=== PATIENT | male | born 1945 | race Caucasian/White ===

== ENCOUNTER 2019-11-28 01:55 | Inpatient (IN) ==
[2019-11-28] MEDS ORDERED: CARDIZEM IV ONE (02:27)
--- NOTE | 2019-11-28 02:37 | PROVIDER DOCUMENTATION ---
HPI-General Adult - General Chief Complaint: Shortness of Breath Stated Complaint: sob Time Seen by Provider: 11/28/19 02:16 Source: patient Allergies/Adverse Reactions: Patient Allergies Allergy/AdvReac Type Severity Reaction Status Date / Time No Known Allergies Allergy Verified 11/28/19 03:14 Home Medications: Home Medication List Medication Instructions Recorded Confirmed Last Taken Type Diltiazem HCl [Cartia Xt] 1 tab PO QHS 07/28/19 11/28/19 10/25/19 21:00 History Exenatide Microspheres [Bydureon 2 mg SQ Q7D 07/28/19 11/28/19 10/23/19 09:00 History Bcise] Insulin Glargine,Hum.rec.anlog 20 unit SQ QHS 07/28/19 11/28/19 Unknown History [Lantus Solostar] Amiodarone HCl 300 mg PO QAM 10/26/19 11/28/19 10/25/19 12:00 History Cholecalciferol (Vit D3) [Vitamin 1 cap PO DAILY 10/26/19 11/28/19 10/25/19 12:00 History D] Dabigatran Etexilate Mesylate 1 cap PO BID 10/26/19 11/28/19 10/25/19 21:00 History [Pradaxa] Gabapentin 2 cap PO BID 10/26/19 11/28/19 10/25/19 21:00 History Insulin Aspart [Novolog Flexpen] See Protocol SQ AC + HS 10/26/19 11/28/19 Unknown History Magnesium Oxide 400 tab PO DAILY 10/26/19 11/28/19 10/25/19 12:00 History Metformin HCl 1,000 tab PO BID 10/26/19 11/28/19 10/25/19 21:00 History Metoprolol Tartrate 100 tab PO BID 10/26/19 11/28/19 10/25/19 21:00 History Nitroglycerin [Nitrostat] 0.4 mg SUBLINGUAL DIRECTED PRN 10/26/19 11/28/19 Unknown History Potassium Chloride [Klor-Con M20] 1 tab PO DAILY 10/26/19 11/28/19 10/25/19 12:00 History Pravastatin Sodium 1 tab PO QPM 10/26/19 11/28/19 10/25/19 21:00 History Promethazine [Phenergan] 12.5 mg PO Q6HR PRN 10/26/19 11/28/19 10/09/19 21:00 History Ropinirole HCl 2 mg PO TID@0900,1500,2100 10/26/19 11/28/19 10/25/19 21:00 History Sertraline [Zoloft] 1 tab PO DAILY 10/26/19 11/28/19 10/25/19 21:00 History Furosemide [Lasix] 40 tab PO DAILY #60 10/28/19 11/28/19 Unknown Rx - History of Present Illness -Gen Adult Nature of Presenting Problems: 74y/o M presents to the ED complaining of dyspnea. States he did not take his medications today as he was away from home and this evening had a sudden onset of shortness of breath. States since the dyspena began it has persisted. No fever, no cough, no recent illness. No chest pain no palpitations. Review of Systems - Adult - REVIEW OF SYSTEMS - ADULT Constitutional: reports: no symptoms reported Eyes: reports: no symptoms reported Ears, Nose, Mouth & Throat: reports: no symptoms reported Cardiovascular: reports: no symptoms reported Respiratory: reports: shortness of breath Gastrointestinal: reports: no symptoms reported Genitourinary: reports: no symptoms reported Musculoskeletal: reports: no symptoms reported Integumentary: reports: no symptoms reported Neurological: reports: no symptoms reported Psychiatric: reports: no symptoms reported Endocrine: reports: no symptoms reported Hematologic/Lymphatic: reports: no symptoms reported Allergic/Immunologic: reports: no symptoms reported All Other Systems: Reviewed and Negative Past History - Adult - PAST MEDICAL HISTORY-ADULT Review of Records: reports: Old Records Reviewed, Nursing Assessment Review, Medications Reviewed, Social history reviewed & non-contributory. Major Childhood Illnesses: reports: denies history Cardiovascular: reports: A-Fib, CAD, CHF, HTN, SC, pacemaker Respiratory: reports: sleep apnea Gastrointestinal: reports: denies history Obstetrical/Gynecological: reports: denies history Genitourinary: reports: denies history Musculoskeletal: reports: denies history Neurological: reports: denies history Endocrine/Immune: reports: Diabetes Other Conditions: reports: denies history - PRIOR SURGERIES/PROCEDURES Surgical/Procedure History: reports: pacemaker - IMMUNIZATION STATUS Childhood Immunizations: See Nurse Assessment Flu Vaccine: See Nurse Assessment - FAMILY HISTORY Family History: reviewed, not pertinent Physical Exam-General - PHYSICAL EXAM-ADULT Initial Vital Signs Reviewed: Yes - CONSTITUTIONAL General Appearance: appears well, alert, mild distress - EYES Eyes: PERRL/EOMI - HEAD, EARS, NOSE, MOUTH & THROAT HENMT: normocephalic/atraumatic, moist mucous membranes, normal ENT inspection - NECK Neck: non-tender, full range of motion, supple - RESPIRATORY Respiratory: chest non-tender, lungs clear, normal breath sounds - CARDIOVASCULAR Cardiovascular: normal peripheral pulses, regular rate, rhythm, no edema - GASTROINTESTINAL (ABDOMEN) Abdominal Exam: non tender, soft - MUSCULOSKELETAL Back Exam: normal inspection, no CVA tenderness, no vertebral tenderness Extremity: normal range of motion, non-tender, no pedal edema - SKIN Integumentary: normal color, normal turgor, warm/dry - NEUROLOGIC Neurologic: grossly normal, no motor/sensory deficits - PSYCHIATRIC Psych/Mental Status: normal mood/affect, normal thought content, normal thought process, oriented x 3 Progress - PLAN OF CARE/RESULTS Progress/Plan/Lab Results: Vital Signs - 8 hr 11/28/19 02:14 Temperature 98.6 F Pulse Rate 112 H Respiratory Rate 29 H Blood Pressure 168/104 O2 Sat by Pulse Oximetry 94 L Orders Category Date Time Status Cardiac Monitoring NOW Care 11/28/19 02:22 Active IV Insertion NOW Care 11/28/19 02:22 Active NEWS Score >or=5:Order NEWS Bundle S.O. NOW Care 11/28/19 02:20 Active Nursing- Obtain EKG ONCE Care 11/28/19 01:58 Active CHEST-1 VIEW [RAD] Stat Exams 11/28/19 02:22 Ordered BLOOD CULTURE [BLDCUL] Stat Lab 11/28/19 02:22 Uncollected BNP [PRO B-NATRIURETIC PEPTIDE] Stat Lab 11/28/19 02:26 Uncollected CBC WITH DIFF [HEME] Stat Lab 11/28/19 02:22 Uncollected TROPONIN T HIGH SENSITIVITY Stat Lab 11/28/19 02:22 Uncollected Diltiazem [Cardizem] Med 11/28/19 02:27 Discontinued 10 mg IV NOW ONE O2 Per Protocol Stat Oth 11/28/19 02:22 Active EKG [EKG] Stat Ther 11/28/19 01:58 Ordered dyspnea with afib with rvr on EKG. Will treat and will further evaluate for causes including but not limited to acs, arrythmia, pna, pe, ptx Result Diagrams: 11/28/19 02:40 11/28/19 02:40 - REASSESSMENT Reassessment #1 Status: improving (feeling better, dyspnea likely due to CHF. Will treat and observe) Reassessment #2 Status: improving (feeling much better dyspnea much improved but pt rapidly desaturates off oxygen and with any attempt at ambulation. Will admit for further evaluation and treatment. Discussed case with hospitalist who will see and admit pt) - EKG 1 Time of EKG reading by physician:: 02:12 EKG Read and Signed by:: Salome Chisholm EKG Interpretation (*Must complete 3 of following elements*): Abnormal (atrail fibrillation, rate 118, no acute st changes, normal axis) - XRAY 1 XRAY Study: Chest Impression: Abnormal (marked pulmonary edema) Departure - Departure Date of Disposition Decision: 11/28/19 Time of Disposition Decision: 06:58 DIAGNOSIS: CHF exacerbation Qualifiers: Heart failure type: unspecified Qualified Code(s): I50.9 - Heart failure, unspe cified Pulmonary edema Qualifiers: Chronicity: acute Qualified Code(s): J81.0 - Acute pulmonary edema Disposition: ADMITTED INPATIENT 09 Certified Medical Emergency: Emergent Condition: Fair Referrals and Follow-Ups: None,PCP [Primary Care Provider] - - Critical Care Note This patient required my direct & personal management of CC.: No Attestation - Physician/ RUBEN Attestation Patient care was provided by Advanced Practice Provider:: No The physician spent face to face time with patient:: Yes Advanced Practice Provider documentation review:: Supervising physician onsite and consulted in the evaluation and care of this patient. The physician did have a face to face encounter with the patient.
[2019-11-28 03:01] LABS: BASO# 0.04 X1000 (0.0-0.2); BASO% 0.4 % (0.0-0.8); EOS# 0.08 X1000 (0.0-0.7); EOS% 0.8 % (0.0-10.0); HEMATOCRIT 42.2 % (42.0-52.0); HEMOGLOBIN 12.4 g/dL (14.0-18.0); IMM GRAN# 0.03 X1000 (0.0-0.04); IMM GRAN% 0.3 % (0.0-0.5); LYMPH% 6.9 % (20.5-51.1); MCH 26.6 PG (27-31); MCHC 29.4 g/dL (33-37); MCV 90.6 FL (81-99); MONO# 0.87 X1000 (0.11-0.59); MONO% 8.5 % (1.7-9.3); NEUT# 8.46 X1000 (1.4-6.5); NEUT% 83.1 % (42.2-75.2); PLT 263 X1000 (130-400); RBC 4.66 XMIL (4.7-6.1); WBC 10.18 X1000 (4.8-10.8)
[2019-11-28] MEDS ORDERED: ASPIRIN PO ONE ×2 (03:47→04:09)
[2019-11-28] MEDS ORDERED: NITROGLYCERIN TOP ONE (03:47)
[2019-11-28] MEDS ORDERED: LASIX IV ONE (03:47)
[2019-11-28 04:22] LABS: AGAP 14; BUN 16 mg/dL (8-22); CALCIUM 8.9 mg/dL (8.8-10.2); CHLORIDE 99 mmol/L (98-107); COSMO 286; ESTIMATED GFR > 60; GLUCOSE 169 mg/dL (70-104); POTASSIUM 3.8 mmol/L (3.5-5.1); SODIUM 141 mmol/L (136-145); TCO2 28 mmol/L (25-35)
--- NOTE | 2019-11-28 07:28 | Diag Imaging Result Doc PS360 ---
EXAM: CHEST-1 VIEW HISTORY: SOB TECHNIQUE: Single view COMPARISON: 10/26/2019 FINDINGS: Poor inspiratory effort. The heart is mildly prominent. There is diffuse bilateral infiltrates. Tiny left pleural effusion. There is a right-sided pacemaker. IMPRESSION: Mild cardiac prominence with pulmonary edema and/or pneumonia Electronically signed by Edward Leavitt 11/28/2019 7:25 AM
--- NOTE | 2019-11-28 07:55 | EKG Report ---
Test Performed on : 11/28/2019 02:11:16 AM Test Reason : shortness of breath Blood Pressure : / mmHG Vent. Rate : 118 BPM Atrial Rate : 117 BPM P-R Int : 000 ms QRS Dur : 100 ms QT Int : 348 ms P-R-T Axes : 000 097 -51 degrees QTc Int : 487 ms Atrial fibrillation. with rapid ventricular response. Rightward axis ST & T wave abnormality, consider inferior ischemia Abnormal ECG When compared with ECG of 26-OCT-2019 14:43, (Unconfirmed) T wave inversion now evident in Anterior leads Unconfirmed Result
[2019-11-28] MEDS ORDERED: PHENERGAN PO PRN (08:22)
[2019-11-28] MEDS ORDERED: NITROGLYCERIN SL PRN (08:22)
[2019-11-28] MEDS ORDERED: TYLENOL PO PRN (08:55)
[2019-11-28] MEDS ORDERED: METOPROLOL TARTRATE PO SCH (09:00)
--- NOTE | 2019-11-28 10:10 | HISTORY AND PHYSICAL ---
PRIMARY CARE PROVIDERS: Karon Cottrell, family nurse practitioner in [place], [place]. EKG TECH: Dr. Card. CHIEF COMPLAINT: Shortness of breath. HISTORY OF PRESENT ILLNESS: Mr. James Hills is a 74-year-old male with a medical history of chronic atrial fibrillation, congestive heart failure, coronary artery disease with a history of CA and stent back in 2004, and also history of hypertension. He has a permanent pacemaker in the right side of his chest. He is here with complaints of progressively worsening shortness of breath for at least 3 days. He went to visit his family yesterday and did not take any of his medications at all and then through the night had progressively worsening shortness of breath, felt like he could not catch his breath. For years, he has not been able to sleep flat. He has pitting edema of the lower extremities, but he claims that this is not any worse than it normally is. He received IV Lasix while he was in the emergency department, aspirin, IV dose of diltiazem because his heart rate was over 100, but continued to require oxygen. He does not wear oxygen at home. He did have a recent admission back in October where he was treated for pneumonia and for congestive heart failure at that time. He did not have any fevers this time. He has not been coughing up any colors. He has not even had a cough. He has not been around any sick contacts. PAST MEDICAL HISTORY: 1. Coronary artery disease with CA and cardiac stent on the left back in 2004. 2. Diabetes mellitus type 2. 3. Hyperlipidemia. 4. Chronic atrial fibrillation. 5. Hypertension. 6. Congestive heart failure. 7. Depression. PAST SURGICAL HISTORY: 1. Right chest permanent pacemaker. 2. Cardiac stent on the left in 2004. 3. Bilateral rotator cuff repair. 4. Three back surgeries. 5. Right knee replacement. 6. Left carpal tunnel. 7. Left elbow surgery. 8. Bilateral cataracts. SOCIAL HISTORY: He quit smoking over 50 years ago, only smoked for about 2 years and it was less than a half pack per day. He denies alcohol or any illicit drug use. He lives at home with his significant other. Currently has to use a cane for ambulation. FAMILY HISTORY: Mother had heart disease and diabetes. Father had multiple strokes. ALLERGIES: No known drug allergies. HOME MEDICATIONS: 1. Diltiazem 120 mg p.o. nightly. 2. Lantus 20 units subcutaneous nightly. 3. Phenergan 12.5 mg p.o. q.6 hours p.r.n. 4. Amiodarone 300 mg p.o. daily. 5. Bydureon BCise 2 mg subcutaneous every 7 days. 6. Neurontin 600 mg p.o. twice daily. 7. Potassium chloride 20 mEq p.o. daily. 8. Magnesium oxide 400 mg p.o. daily. 9. Metformin 1000 mg p.o. twice daily. 10. Metoprolol tartrate 100 mg p.o. twice daily. 11. Nitrostat 0.4 mg sublingual p.r.n. 12. NovoLog insulin sliding scale. 13. Pradaxa 150 mg p.o. twice daily. 14. Pravastatin 40 mg p.o. nightly. 15. Ropinirole 2 mg p.o. t.i.d. 16. Vitamin D3, 5000 units p.o. daily. 17. Zoloft 50 mg p.o. daily. 18. Lasix 40 mg p.o. daily. REVIEW OF SYSTEMS: A 14-point review of systems are complete and all were negative for those mentioned in above HPI. PHYSICAL EXAMINATION: VITAL SIGNS: Temperature 98.2 degrees, heart rate 98, respiratory rate 27, blood pressure 126/86, O2 saturation 91% on room air and 99% on 5 L. He is 5 feet 10 inches tall, 214 pounds with a BMI of 30.7. GENERAL: Mr. James Hills is a 74-year-old male. He is in no acute distress. He is able to answer questions appropriately next. HEENT: Atraumatic, normocephalic. Pupils equal, round, reactive to light. Extraocular movements intact. Mucous membranes are moist. NECK: Trachea midline. CARDIOVASCULAR: Irregularly irregular rate and rhythm. No rubs, gallops, murmurs. He has got 2+ lower extremity pitting edema, +2 dorsalis and radial pulses. Unable to assess for JVD due to body habitus. Negative for carotid bruits. PULMONARY: No wheezing noted, but there were some mild crackles in the mid to lower bases anteriorly and posteriorly. He was tolerating 5 L nasal cannula. ABDOMEN: Soft, round. Positive bowel sounds x4. EXTREMITIES: Moves all extremities equally with decreased range of motion. NEUROLOGIC: Alert and oriented x3. Follows commands. Sensory is intact. SKIN: Warm, dry, intact. Bilateral calves were a little pinkish or light red hue. He states that is chronic. LABORATORY DATA: White blood cells 10,000, hemoglobin 12, hematocrit 42, platelet count 263,000. Sodium 141, potassium 3.8, BUN 16, creatinine 1.0, glucose 169, calcium 8.9. Troponin 24. ProBNP is 2236. IMAGING: Chest x-ray: Pulmonary edema and/or pneumonia. EKG: Atrial fibrillation with RVR. Rate was 118, QTc was 487. ASSESSMENT AND PLAN: 1. Acute on chronic systolic congestive heart failure. We do not have an echocardiogram here. We are going to get one to update and evaluate the heart function at this time. He has been given 40 of Lasix IV in the ER. We will continue that twice a day. We will also continue his metoprolol. He normally takes 100 twice a day. Will drop it down to 50 twice a day and increase it back up prior to discharge. We will continue his diltiazem for rate control and amiodarone for rate control. He was in atrial fibrillation with rapid ventricular response when he presented. Potassium will continue. Magnesium will continue. 2. Acute hypoxemic respiratory failure. Wean oxygen for sats >90%. He does not use oxygen at home. Nebulizers every 6 hours ordered. 3. Atrial fibrillation with rapid ventricular response with history of chronic atrial fibrillation. Currently rate is more controlled. He did get a dose of IV diltiazem. We will continue his p.o. dosing of diltiazem, amiodarone and his beta patti. He is on Pradaxa. We will continue that. 4. History of coronary artery disease, myocardial infarction and cardiac stent. He has currently got a pacemaker as well. No complaints of chest pain. Beta patti, statin continued. 5. Hyperlipidemia. Continue statin. 6. Diabetes mellitus type 2. We will do pattern blood glucoses and sliding scale insulin. We will also continue his 20 units of Lantus at night and his metformin. 7. Depression. Continue Zoloft. 8. Deep venous thrombosis prophylaxis. Sequential compression devices. Dictated by FRANKY Duenas for Clarke Tapia MD cc: FRANKY Duenas MD [facility]
[2019-11-28] MEDS: ATROVENT NEB INH SCH ×3 (11:24→22:55)
[2019-11-28] MEDS: XOPENEX NEB INH SCH ×3 (11:25→22:55)
[2019-11-28] MEDS: PRILOSEC PO SCH (12:31)
[2019-11-28] MEDS: NEURONTIN PO SCH ×2 (12:32→23:28)
[2019-11-28] MEDS: MAG-OX PO SCH (12:32)
[2019-11-28] MEDS: GLUCOPHAGE PO SCH ×2 (12:32→17:27)
[2019-11-28] MEDS: ZOLOFT PO SCH (12:32)
[2019-11-28] MEDS: KLOR-CON PO SCH (12:32)
[2019-11-28] MEDS: VITAMIN D PO SCH (12:33)
[2019-11-28] MEDS: LASIX IV SCH ×2 (12:33→23:28)
[2019-11-28] MEDS: HUMULIN R SUBQ SCH ×3 (12:35→22:04)
[2019-11-28] MEDS: CORDARONE PO SCH (12:35)
--- NOTE | 2019-11-28 17:13 | HISTORY AND PHYSICAL ---
Patient has no major complaints. He came in today with a 3-day history of dyspnea on exertion, orthopnea, which that has been longstanding, increasing lower extremity edema. He reports history of CAD, not clear if he has heart failure associated. He is not here very often. He was admitted over a year ago for chest pain, shortness of breath at that time and was felt to have heart failure then. It is not completely clear what his diagnosis was. He had pulmonary edema at that time, but likely he has heart failure. No echocardiogram has been obtained here. He sees [facility] physician in [place], which it sounds like it is Dr. Juárez, but we will continue to follow. We will continue diuretics. We will continue control of atrial fibrillation. Pending his echocardiogram, we may have to adjust his medications accordingly. He is already on Pradaxa and get Cardiology opinion. This is a [id number] encounter note with Nakita Koo. cc: Clarke Tapia MD
[2019-11-28] MEDS: REQUIP PO SCH ×2 (17:27→23:28)
[2019-11-28] MEDS: LOPRESSOR PO SCH ×2 (18:35→23:28)
[2019-11-28] MEDS: LANTUS INSULIN SUBQ SCH (22:07)
[2019-11-28] MEDS: PRADAXA PO SCH (23:28)
[2019-11-28] MEDS: CARDIZEM CD PO SCH (23:28)
[2019-11-28] MEDS: PRAVACHOL PO SCH (23:28)
[2019-11-29] MEDS: XOPENEX NEB INH SCH ×4 (03:40→21:00)
[2019-11-29] MEDS: ATROVENT NEB INH SCH ×4 (03:40→21:00)
--- NOTE | 2019-11-29 05:51 | ECHO REPORT ---
ORDER DATE: 11/28/2019 MEASUREMENTS: 1. Septal thickness 1.3. 2. Left ventricular internal diameter in diastole 3.6. 3. Posterior wall thickness 1.1. 4. Left ventricular internal diameter in systole 2.7. 5. Aortic root 3.5. 6. Left atrium 3.5. SUMMARY: 1. Technically difficult study due to limited acoustic window quality. 2. Aortic valve is trileaflet and opens normally on 2-dimensional images. Peak gradient across aortic valve is 12 mmHg. Mitral annular calcification is demonstrated. There is very mild mitral regurgitation. Tricuspid and pulmonic valves are without evidence of structural abnormality with mild tricuspid regurgitation. The estimated systolic PA pressure by Doppler is 75 to 80 mmHg suggesting moderate to severe pulmonary hypertension. The aortic root is normal in size. 3. Normal left ventricular chamber size with mild concentric left ventricular hypertrophy is demonstrated. Estimated left ejection fraction appears to be at least 60%. No regional wall motion abnormality can be appreciated. Left atrium is normal in size. Mild biatrial enlargement is demonstrated. Right ventricle appears mildly enlarged. 4. Pacemaker lead evident in right ventricle. 5. No pericardial effusion. 6. Appearance of inferior vena cava suggests normal central venous pressure. 7. Atrial fibrillation during study. Mild biatrial enlargement is demonstrated. Right ventricle appears mildly enlarged. Pacemaker lead is evident in the right ventricle. 8. No pericardial effusion. 9. Appearance of inferior vena cava suggests elevated central venous pressure. 10. Atrial fibrillation during study. CONCLUSIONS: 1. Technically difficult study. 2. Very mild mitral regurgitation. 3. Mild tricuspid regurgitation with moderate to severe pulmonary hypertension by Doppler. 4. Mild concentric left ventricular hypertrophy with estimated left ventricular ejection fraction at least 60%. 5. Mild biatrial enlargement. 6. Mild right ventricular enlargement. 7. Atrial fibrillation during study. cc: MD Nakita Portilol CRNP
[2019-11-29] MEDS: HUMULIN R SUBQ SCH ×3 (06:24→16:00)
[2019-11-29 06:42] LABS: BASO# 0.04 X1000 (0.0-0.2); BASO% 0.6 % (0.0-0.8); EOS# 0.19 X1000 (0.0-0.7); EOS% 2.7 % (0.0-10.0); HEMATOCRIT 39.9 % (42.0-52.0); HEMOGLOBIN 11.5 g/dL (14.0-18.0); LYMPH# 0.81 X1000 (1.2-3.4); LYMPH% 11.5 % (20.5-51.1); MCH 26.8 PG (27-31); MCHC 28.8 g/dL (33-37); MONO# 0.84 X1000 (0.11-0.59); MONO% 11.9 % (1.7-9.3); MPV 9.2 FL (7.4-10.4); NEUT# 5.18 X1000 (1.4-6.5); NEUT% 73.3 % (42.2-75.2); PLT 259 X1000 (130-400); RBC 4.29 XMIL (4.7-6.1); RDW 19.5 % (11.5-14.5); WBC 7.06 X1000 (4.8-10.8)
[2019-11-29 06:49] LABS: INR 1.17; PROTIME 15.1 Seconds (11.0-16.0); PTT 42.7 Seconds (22.3-41.8)
[2019-11-29 06:55] LABS: HEMOGLOBIN A1C 7.4 % (4.8-6.0)
[2019-11-29 07:02] LABS: ALB/GLOB RATIO 1.3; ALBUMIN 3.9 g/dL (3.5-5.0); CALCIUM 8.7 mg/dL (8.8-10.2); CREATININE 1.2 mg/dL (0.7-1.2); MAGNESIUM 1.8 mg/dL (1.5-2.7); POTASSIUM 3.7 mmol/L (3.5-5.1); TOTAL BILIRUBIN 0.91 mg/dL (0.20-1.00); TOTAL PROTEIN 6.8 g/dL (6.3-8.3)
[2019-11-29 07:46] LABS: BANDS 2 % (0-1); HYPOCHROM 1+; LYMPHS 26 % (21-51); MONO 10 % (1-9); SEGS 62 % (42-75)
--- NOTE | 2019-11-29 07:48 | EKG Report ---
Test Performed on : 11/29/2019 07:09:31 AM Test Reason : sob; chf; afib Blood Pressure : / mmHG Vent. Rate : 076 BPM Atrial Rate : 076 BPM P-R Int : 000 ms QRS Dur : 102 ms QT Int : 428 ms P-R-T Axes : 000 083 -20 degrees QTc Int : 481 ms Undetermined rhythm Nonspecific ST abnormality Abnormal QRS-T angle, consider primary T wave abnormality Prolonged QT Abnormal ECG When compared with ECG of 29-NOV-2019 07:08, (Unconfirmed) Current undetermined rhythm precludes rhythm comparison, needs review Confirmed by Liz BLANKENSHIP, Manoj Almeida ([id number]) on 11/29/2019 9:37:41 AM
--- NOTE | 2019-11-29 07:52 | EKG Report ---
Test Performed on : 11/29/2019 07:10:43 AM Test Reason : sob; chf; afib Blood Pressure : / mmHG Vent. Rate : 085 BPM Atrial Rate : 086 BPM P-R Int : 000 ms QRS Dur : 112 ms QT Int : 442 ms P-R-T Axes : 000 083 -33 degrees QTc Int : 525 ms Atrial fibrillation. Possible Lateral infarct , age undetermined Abnormal ECG When compared with ECG of 29-NOV-2019 07:09, (Unconfirmed) Previous ECG has undetermined rhythm, needs review Confirmed by Liz BLANKENSHIP, Manoj Almeida ([id number]) on 11/29/2019 9:37:43 AM
[2019-11-29] MEDS: PRADAXA PO SCH ×2 (09:16→20:51)
[2019-11-29] MEDS: CORDARONE PO SCH (09:16)
[2019-11-29] MEDS: NEURONTIN PO SCH ×2 (09:16→20:51)
[2019-11-29] MEDS: KLOR-CON PO SCH (09:17)
[2019-11-29] MEDS: GLUCOPHAGE PO SCH ×2 (09:17→17:00)
[2019-11-29] MEDS: VITAMIN D PO SCH (09:17)
[2019-11-29] MEDS: PRILOSEC PO SCH (09:17)
[2019-11-29] MEDS: LASIX IV SCH ×2 (09:18→20:51)
[2019-11-29] MEDS: MAG-OX PO SCH (09:18)
[2019-11-29] MEDS: LOPRESSOR PO SCH ×2 (09:18→20:51)
[2019-11-29] MEDS: ZOLOFT PO SCH (09:18)
[2019-11-29] MEDS: REQUIP PO SCH ×3 (09:18→20:51)
--- NOTE | 2019-11-29 09:46 | Diag Imaging Result Doc PS360 ---
EXAM: CHEST-2 VIEWS - 11/29/2019 HISTORY: sob TECHNIQUE: Chest two views COMPARISON: 11/28/2019 portable one view chest FINDINGS: Bilateral infiltrates appear to have decreased mildly. There are tiny bilateral pleural effusions. There is no evidence of pneumothorax. There is stable borderline cardiomegaly. There is transvenous cardiac pacemaker again seen. IMPRESSION: Mild decrease in bilateral infiltrates compared to prior. Electronically signed by Devonte Smith 11/29/2019 9:44 AM
--- NOTE | 2019-11-29 16:50 | PROGRESS NOTE ---
DATE: 11/29/2019 SUBJECTIVE: Patient has no major complaints. OBJECTIVE: Blood pressure is 111/64, heart rate of 94, respiratory rate of 20, temperature 98.3 degrees, 93% on 2 L.Cardiovascular: Regular rate and rhythm. Pulmonary: Bilateral breath sounds clear to auscultation. GI: Was soft, nontender, nondistended. Bowel sounds were positive. LABS: White count 7, hemoglobin and hematocrit 11, 39, platelets 259,000. Creatinine 1.2. A1c 7.4. PROBLEM LIST: 1. Acute congestive heart failure exacerbation presumably diastolic based on his echocardiogram, ejection fraction is 60%. We will continue diuresis. He seems like he is breathing a little bit better and to me his x-ray looks better. 2. Atrial fibrillation, he is rate controlled, although still somewhat fast. He is on amiodarone and Cardizem. He is on Pradaxa I think for anticoagulation. 3. Anemia which may be of chronic disease. We will continue to follow. 4. Type 2 diabetes is relatively well controlled looking at the labs. DISPOSITION: I anticipate discharge in another 24 hours. cc: Clarke Tapia MD
[2019-11-29] MEDS: PRAVACHOL PO SCH (20:51)
[2019-11-29] MEDS: CARDIZEM CD PO SCH (20:51)
[2019-11-30] MEDS: ATROVENT NEB INH SCH ×4 (04:00→22:24)
[2019-11-30] MEDS: XOPENEX NEB INH SCH ×4 (04:00→22:24)
[2019-11-30] MEDS: HUMULIN R SUBQ SCH ×5 (06:39→16:15)
[2019-11-30] MEDS: LANTUS INSULIN SUBQ SCH (06:40)
[2019-11-30 06:51] LABS: BASO# 0.03 X1000 (0.0-0.2); BASO% 0.4 % (0.0-0.8); EOS# 0.22 X1000 (0.0-0.7); EOS% 2.8 % (0.0-10.0); HEMATOCRIT 42.8 % (42.0-52.0); HEMOGLOBIN 12.4 g/dL (14.0-18.0); IMM GRAN# 0.02 X1000 (0.0-0.04); IMM GRAN% 0.3 % (0.0-0.5); LYMPH# 0.75 X1000 (1.2-3.4); LYMPH% 9.6 % (20.5-51.1); MCH 26.8 PG (27-31); MCV 92.4 FL (81-99); MONO# 0.73 X1000 (0.11-0.59); MONO% 9.4 % (1.7-9.3); MPV 9.5 FL (7.4-10.4); NEUT# 6.05 X1000 (1.4-6.5); NEUT% 77.5 % (42.2-75.2); PLT 301 X1000 (130-400); RBC 4.63 XMIL (4.7-6.1); RDW 19.1 % (11.5-14.5)
[2019-11-30 07:06] LABS: IRON SATURATION 21 %; TIBC 404 ug/dL; TOTAL IRON 86 ug/dL (53-167); UNBOUND IRON 318 ug/dL (112-346)
[2019-11-30 07:18] LABS: ALB/GLOB RATIO 0.9; ALBUMIN 3.8 g/dL (3.5-5.0); CREATININE 1.2 mg/dL (0.7-1.2); POTASSIUM 4.2 mmol/L (3.5-5.1); TOTAL BILIRUBIN 0.84 mg/dL (0.20-1.00)
[2019-11-30 07:37] LABS: FERRITIN 111 ng/mL (30-400)
[2019-11-30] MEDS: CORDARONE PO SCH (09:43)
[2019-11-30] MEDS: REQUIP PO SCH ×3 (09:43→21:27)
[2019-11-30] MEDS: LOPRESSOR PO SCH ×2 (09:43→21:27)
[2019-11-30] MEDS: NEURONTIN PO SCH ×2 (09:43→21:26)
[2019-11-30] MEDS: PRADAXA PO SCH ×2 (09:43→21:27)
[2019-11-30] MEDS: ZOLOFT PO SCH (09:44)
[2019-11-30] MEDS: PRILOSEC PO SCH (09:44)
[2019-11-30] MEDS: MAG-OX PO SCH (09:44)
[2019-11-30] MEDS: LASIX IV SCH ×2 (09:44→21:27)
[2019-11-30] MEDS: VITAMIN D PO SCH (09:44)
[2019-11-30] MEDS: GLUCOPHAGE PO SCH ×2 (09:44→16:15)
[2019-11-30] MEDS: KLOR-CON PO SCH (09:44)
--- NOTE | 2019-11-30 18:46 | PROGRESS NOTE ---
DATE: 11/30/2019 SUBJECTIVE: The patient has no major complaints. He wants to go home, but he is still having an O2 requirement. OBJECTIVE: Blood pressure is 109/64, heart rate of 83, respiratory rate 20, and temperature 98.3 degrees.Cardiovascular: Regular rate and rhythm. Pulmonary: Bilateral breath sounds clear to auscultation. GI: Soft. Nontender, nondistended. Bowel sounds are positive. LABORATORY DATA: White count is 7.8, hemoglobin and hematocrit 12 and 42, and platelets of 301,000. Creatinine of 1.2. Folate is 6.3. PROBLEM LIST: 1. Acute congestive heart failure exacerbation with preserved ejection fraction so diastolic. We will continue diuresing. He seems to be doing okay. 2. Atrial fibrillation. Continue amiodarone. Continue Cardizem. Continue Pradaxa. Heart rate is controlled. 3. Hypoxia which is likely related to his heart failure. His chest x-ray to me looked overall improved. DISPOSITION: 1. We plan to discharge him once we have oxygen set up, which will most likely at this point occur tomorrow, but I think can continue his Lasix in any case. 2. Diabetes. Stable blood sugars. We will continue to follow closely. cc: Clarke Tapia MD
[2019-11-30] MEDS: PRAVACHOL PO SCH (21:26)
[2019-11-30] MEDS: CARDIZEM CD PO SCH (21:26)
[2019-12-01] MEDS: ATROVENT NEB INH SCH (03:41)
[2019-12-01] MEDS: XOPENEX NEB INH SCH (03:41)
[2019-12-01] MEDS: LANTUS INSULIN SUBQ SCH (06:27)
[2019-12-01] MEDS: HUMULIN R SUBQ SCH ×2 (06:27→06:59)
[2019-12-01 07:11] LABS: BASO# 0.02 X1000 (0.0-0.2); BASO% 0.3 % (0.0-0.8); EOS# 0.23 X1000 (0.0-0.7); EOS% 3.3 % (0.0-10.0); HEMATOCRIT 42.2 % (42.0-52.0); HEMOGLOBIN 12.4 g/dL (14.0-18.0); IMM GRAN# 0.02 X1000 (0.0-0.04); IMM GRAN% 0.3 % (0.0-0.5); LYMPH% 9.9 % (20.5-51.1); MCHC 29.4 g/dL (33-37); MCV 91.9 FL (81-99); MONO% 9.9 % (1.7-9.3); MPV 9.3 FL (7.4-10.4); NEUT# 5.39 X1000 (1.4-6.5); NEUT% 76.3 % (42.2-75.2); PLT 298 X1000 (130-400); RBC 4.59 XMIL (4.7-6.1); RDW 18.6 % (11.5-14.5); WBC 7.06 X1000 (4.8-10.8)
[2019-12-01 07:37] LABS: AGAP 15; ALB/GLOB RATIO 0.9; ALBUMIN 3.9 g/dL (3.5-5.0); ALKALINE PHOSPHATASE 94 U/L (32-122); BUN 26 mg/dL (8-22); CALCIUM 9.2 mg/dL (8.8-10.2); CHLORIDE 93 mmol/L (98-107); COSMO 290; CREATININE 1.1 mg/dL (0.7-1.2); ESTIMATED GFR > 60; GLUCOSE 245 mg/dL (70-104); GOT 16 U/L (10-34); GPT 11 U/L (10-44); MAGNESIUM 1.9 mg/dL (1.5-2.7); POTASSIUM 3.7 mmol/L (3.5-5.1); SODIUM 139 mmol/L (136-145); TCO2 31 mmol/L (25-35); TOTAL BILIRUBIN 0.58 mg/dL (0.20-1.00); TOTAL PROTEIN 8.2 g/dL (6.3-8.3)
[2019-12-01 08:08] VITALS: BP 114/65
--- NOTE | 2019-12-01 08:46 | Diag Imaging Result Doc PS360 ---
EXAM: CHEST-2 VIEWS 12/01/2019 HISTORY: hypoxia TECHNIQUE: PA and lateral chest COMMENT: There is blunting of the left costophrenic angle and opacity over the left hemidiaphragm. This was also present on 11/29/2019. Overall the appearance of the chest has not changed significantly. IMPRESSION: Left pleural effusion and basilar atelectasis versus pneumonia. Electronically signed by Soto Thomas 12/01/2019 8:44 AM
[2019-12-01] MEDS: CORDARONE PO SCH (09:19)
[2019-12-01] MEDS: REQUIP PO SCH (09:20)
[2019-12-01] MEDS: LOPRESSOR PO SCH (09:20)
[2019-12-01] MEDS: GLUCOPHAGE PO SCH (09:20)
[2019-12-01] MEDS: PRADAXA PO SCH (09:20)
[2019-12-01] MEDS: NEURONTIN PO SCH (09:20)
[2019-12-01] MEDS: ZOLOFT PO SCH (09:20)
[2019-12-01] MEDS: VITAMIN D PO SCH (09:20)
[2019-12-01] MEDS: KLOR-CON PO SCH (09:20)
[2019-12-01] MEDS: PRILOSEC PO SCH (09:20)
[2019-12-01] MEDS: MAG-OX PO SCH (09:20)
[2019-12-01] MEDS: LASIX IV SCH (09:21)
--- NOTE | 2019-12-01 11:47 | DISCHARGE SUMMARY ---
ADMISSION DATE: 11/28/2019 DISCHARGE DATE: 12/01/2019 ADMISSION DIAGNOSES: 1. Acute on chronic systolic congestive heart failure. 2. Acute hypoxemic respiratory failure. 3. Atrial fibrillation with rapid ventricular response. 4. History of coronary artery disease, myocardial infarction and cardiac stent. 5. Hyperlipidemia. 6. Diabetes mellitus type 2. 7. Depression. DISCHARGE DIAGNOSES: 1. Acute congestive heart failure exacerbation with preserved ejection fraction, so it is actually diastolic. 2. Atrial fibrillation, rate controlled. 3. Hypoxia related to heart failure, improved. Will go home on oxygen CONSULTATIONS: None. SURGERIES OR PROCEDURES: None. HOSPITAL COURSE: Mr. James Hills is a 74-year-old male with a medical history of chronic atrial fibrillation, congestive heart failure, coronary artery disease, hypertension, pacemaker, came in with complaints of progressively worsening shortness of breath for at least 3 days. He went to visit his family the day prior to presentation, apparently did not take his medications and then had the progressively worsening shortness of breath, felt like he could not catch his breath at all, was not able to lie flat to sleep, lower extremity edema, so he was started on IV Lasix, aspirin, oxygen. His beta patti was added back, but it was decreased by half. The chest x-ray showed pulmonary edema. His EKG showed atrial fibrillation with a rapid ventricular response. Echocardiogram performed, ejection fraction was 60%. There was no pericardial effusion. By the time they did the echo, the inferior vena cava suggested that there was elevation in the CVP, but what he did have was elevated pulmonary artery pressures, so he had more of a right-sided heart failure and his right pulmonary pressures were 75 to 80 mmHg. He had improvement of symptoms and was stable for discharge home, and he will stay on 50 of metoprolol twice a day instead of 100. His chest x-ray this morning still shows some left pleural effusion and basilar atelectasis. DISCHARGE VITAL SIGNS: Temperature 97.4 degrees, heart rate 93, respiratory rate 16, blood pressure 114/65, O2 saturation 98% on 2 L. I believe he is going to go home on some oxygen. DISCHARGE LABORATORY DATA: White blood cells 7000, hemoglobin 12, hematocrit 42, platelet count 298,000. Sodium 139, potassium 3.7, BUN 26, creatinine is 1.1, glucose 245, calcium 9.2, magnesium 1.9. IMAGING: Chest x-ray on admission, mild cardiac prominence with pulmonary edema and/or pneumonia. Echocardiogram as reported in hospital course. He has more right-sided heart failure and severe pulmonary hypertension, preserved ejection fraction. Chest x-ray on the , mild decrease in bilateral infiltrates. Chest x-ray today on the , left pleural effusion and basilar atelectasis versus pneumonia. EKG on admission, atrial fibrillation with rapid ventricular response, rate of 118. EKG on the , atrial fibrillation, rate 85. EKG, another one on the says undetermined rhythm, but he has atrial fibrillation. DISCHARGE MEDICATIONS: 1. Tylenol 650 mg p.o. q.6 hours p.r.n. 2. Lopressor 50 mg p.o. twice daily. 3. Lasix 40 mg p.o. daily. 4. Zoloft 50 mg p.o. daily. 5. Vitamin D 5000 units p.o. daily. 6. Ropinirole 2 mg p.o. t.i.d. 7. Pravastatin 40 mg p.o. nightly. 8. Pradaxa 150 mg p.o. twice daily. 9. Sliding scale insulin using NovoLog. 10. Nitrostat 0.4 mg sublingual p.r.n. 11. Metformin 1000 mg p.o. twice daily. 12. Magnesium oxide 400 mg p.o. daily. 13. Potassium chloride 20 mEq p.o. daily. 14. Neurontin 600 mg p.o. twice daily. 15. Diltiazem 120 mg p.o. daily. 16. Bydureon 2 mg subcutaneous every 7 days on Sundays. 17. Amiodarone 300 mg p.o. daily. 18. Phenergan 12.5 mg p.o. q.6 hours p.r.n. 19. Lantus 20 units subcutaneous nightly. ACTIVITY: Weigh daily, record daily weights. Activity as tolerated. DISCHARGE DIET: Diabetic, heart healthy, low-sodium. DISCHARGE INSTRUCTIONS: If your condition changes, contact your physician and/or return to the emergency department. Changes may include but are not limited to shortness of breath, increased fatigue, excessive bleeding, unexplained weight loss or gain, unmanageable pain, signs or symptoms of infection. Please notify your physician for fever of 101 degrees or above, shortness of breath, chest pain, weight gain of 4 pounds or more in a week, swelling in your feet or ankles. PHYSICIAN FOLLOWUP: Please follow up with your rug sizer. DISCHARGE DISPOSITION: Home. Dictated by FRANKY Duenas for Clarke Tapia MD cc: FRANKY Duenas MD
== END 2019-12-01 10:12 | disposition home or self-care (01) | DRG 292 ==
LOC: ED 01:55 → 4N 09:09
PROVIDERS: ATTEND Internal Medicine